=== PATIENT | female | born 2000 | race Two or more races ===

== ENCOUNTER 2020-05-25 19:49 | Emergency (ER) | payer SELFPAY ==
[~2020-05-25] VITALS: Ht 157.5 cm; Wt 77.1 kg
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
[2020-05-25] MEDS ORDERED: IBUPROFEN 600 MG TABLET PO ONE (20:30)
[2020-05-25] MEDS ORDERED: IBUPROFEN 600 MG TABLET ONE (20:33)
--- NOTE | 2020-05-25 20:46 | NUR ---
xray at bedside
[2020-05-25] MEDS ORDERED: NAPR-1164 PO (20:58)
[2020-05-25] MEDS ORDERED: CYCL10TA9 PO (20:58)
--- NOTE | 2020-05-25 21:32 | NUR ---
Patient discharged to home in stable condition. Written and verbal after care instructions given. Patient verbalizes understanding of instruction. Pt ambulated out of ED. VSS.
[2020-05-25 21:33] VITALS: BP 123/76
== END 2020-05-25 21:14 | disposition home or self-care (01) ==
LOC: ER 19:56
DX: S29.012A Strain of muscle and tendon of back wall of thorax, initial encounter (principal); S70.12XA Contusion of left thigh, initial encounter; S60.222A Contusion of left hand, initial encounter; Z79.899 Other long term (current) drug therapy; V49.49XA Driver injured in collision with other motor vehicles in traffic accident, initial encounter; Y93.89 Activity, other specified; Y92.413 State road as the place of occurrence of the external cause; Y99.8 Other external cause status
CPT/HCPCS: 73130-TC; 73552